=== PATIENT | female | born 1985 | race Two or more races ===

== ENCOUNTER 2017-09-11 11:35 | Observation (INO) | payer SELFPAY ==
[~2017-09-11] VITALS: Ht 149.9 cm; Wt 69.9 kg
[2017-09-11] MEDS ORDERED: PREN-96 PO (12:19)
[2017-09-11 12:39] LABS: Urine RBC None Seen /hpf (0 - 4)
[2017-09-11 12:48] LABS: Basophils # (auto) 0.1 uL; Basophils % (auto) 0.6 % (0.0-2.0); Eosinophils # (auto) 0.3 uL; Eosinophils % (auto) 2.7 % (0.0-7.0); Hematocrit 37.6 % (36.0-46.0); Hemoglobin 12.5 g/dL (12.2-16.2); Lymphocytes % (auto) 17.4 % (10.0-50.0); Mean Corpuscular Hemoglobin 30.8 pg (28.0-32.0); Mean Corpuscular Hgb Conc. 33.4 g/dL (32.0-36.0); Mean Corpuscular Volume 92.3 fL (80.0-100.0); Mean Platelet Volume 9.1 fL (6.9-10.8); Monocytes # (auto) 0.8 uL; Monocytes % (auto) 6.8 % (0.0-12.0); Neutrophils # (auto) 8.3 uL; Neutrophils % (auto) 72.5 % (37.0-80.0); Nucleated Red Blood Cells % 0.1 %; Platelet Count (auto) 213 10^3/uL (140-450); Red Cell Distribution Width 13.3 % (11.8-14.3); Urine Bilirubin Negative (Negative); Urine Blood Negative /uL (Negative); Urine Color Yellow (Yellow); Urine Glucose Normal (Normal); Urine Ketone Negative (Negative); Urine Mucus FEW (None Seen); Urine Nitrite Negative (Negative); Urine Squamous Epithelial Cell FEW /hpf (<5); Urine Urobilinogen Normal (Negative); Urine pH 6.5 (5.0-8.0); White Blood Cell 11.4 10^3/uL (4.4-10.8)
[2017-09-11 12:58] LABS: INR 0.88 (0.9-1.15); Partial Thromboplastin Time 24.5 sec (22.64-33.71); Prothrombin Time 9.6 sec (9.37-12.3)
[2017-09-11 13:03] LABS: Albumin 2.7 g/dL (3.4-5.0); BUN/Creatinine Ratio 15.2; Calcium 8.7 mg/dL (8.5-10.1); Potassium 3.8 mmol/L (3.5-5.1)
[2017-09-11 13:06] LABS: Bilirubin, Total 0.3 mg/dL (0.2-1.0); Total Protein 6.8 g/dL (6.4-8.2)
[2017-09-11] MEDS ORDERED: LACTATED RINGER'S 1,000 ML IV ONE (14:15)
[2017-09-11] MEDS ORDERED: TERBUTALINE SULFATE 1 MG/ML 1ML VIAL SC ONE (14:49)
[2017-09-11] MEDS: TERBUTALINE SULFATE 1 MG/ML 1ML VIAL SC SCH ×3 (14:55→15:55)
[2017-09-11] MEDS ORDERED: BETAMETHASONE ACET (6MG/ML) 5ML VIAL IM ONE (17:15)
[2017-09-11] MEDS ORDERED: NIFEdipine 10 MG CAP PO SCH ×2 (21:30→22:00)
[2017-09-18 17:11] LABS: African American Detect. Rate Note (.); Ashkenazi Jewish Detect. Rate Note (.); Comments: Note (.); INTERPRETATION Note (.); Method/Limitations: Note (.); Mutations Analyzed: Note (.); Other or Mixed Ethnicity Rate Note (.)
== END 2017-09-11 23:47 | disposition home or self-care (01) | DRG 778 ==
LOC: LDRP 11:35
PROVIDERS: ADMIT Specialist; ATTEND Specialist
DX: O60.03 Preterm labor without delivery, third trimester (principal); Z3A.35 35 weeks gestation of pregnancy
CPT/HCPCS: 36415; 59025; 76805; 76818; 80053; 80307; 81001; 81002; 81220; 83036; 85025; 85610; 85730; 86592; 86703; 86762; 86850; 86900; 86901; 87340; 96360; 96372; G0378; J0702; J3105; 96365; 96366; 96374

== ENCOUNTER 2017-09-12 17:05 | Observation (INO) | payer SELFPAY ==
[~2017-09-12 17:05] MED LIST: PREN-96 PO
[2017-09-12] MEDS ORDERED: BETAMETHASONE ACET (6MG/ML) 5ML VIAL IM ONE (17:30)
== END 2017-09-12 18:05 | disposition home or self-care (01) | DRG 782 ==
LOC: LDRP 17:05
PROVIDERS: ADMIT Specialist; ATTEND Specialist
DX: O40.3XX0 Polyhydramnios, third trimester, not applicable or unspecified (principal); Z3A.36 36 weeks gestation of pregnancy
CPT/HCPCS: 59025; 81002; 96372; G0378

== ENCOUNTER 2017-10-03 04:20 | Inpatient (IN) | payer MEDICAID ==
[~2017-10-03] VITALS: Ht 147.3 cm; Wt 69.9 kg
[2017-10-03] VITALS (16 sets, daily range): BP systolic 104–143; BP diastolic 60–92
[2017-10-03] MEDS: LACTATED RINGER'S 1,000 ML IV SCH ×2 (04:32→20:32)
[2017-10-03 05:20] LABS: Urine Bacteria NONE SEEN /hpf (None Seen); Urine Blood Negative /uL (Negative); Urine WBC <1 /hpf (0 - 5)
[2017-10-03 05:20] LABS: Basophils # (auto) 0 uL; Basophils % (auto) 0.6 % (0.0-2.0); Eosinophils # (auto) 0.2 uL; Eosinophils % (auto) 2.6 % (0.0-7.0); Hematocrit 36.3 % (36.0-46.0); Hemoglobin 12.5 g/dL (12.2-16.2); Lymphocytes # (auto) 1.7 uL; Lymphocytes % (auto) 22.4 % (10.0-50.0); Mean Corpuscular Hemoglobin 32.1 pg (28.0-32.0); Mean Corpuscular Hgb Conc. 34.4 g/dL (32.0-36.0); Mean Corpuscular Volume 93.2 fL (80.0-100.0); Monocytes # (auto) 0.5 uL; Monocytes % (auto) 6.1 % (0.0-12.0); Neutrophils # (auto) 5.3 uL; Neutrophils % (auto) 68.3 % (37.0-80.0); Nucleated Red Blood Cells % 0.1 %; Platelet Count (auto) 152 10^3/uL (140-450); Red Blood Cells 3.89 10^6/uL (4.0-5.20); Red Cell Distribution Width 13.5 % (11.8-14.3); White Blood Cell 7.7 10^3/uL (4.4-10.8)
[2017-10-03] MEDS ORDERED: NIF10C PO (05:26)
[2017-10-03 05:27] LABS: Albumin 2.5 g/dL (3.4-5.0); BUN/Creatinine Ratio 35.9; Calcium 8.3 mg/dL (8.5-10.1); INR 0.85 (0.9-1.15); Partial Thromboplastin Time 25.8 sec (22.64-33.71); Potassium 3.9 mmol/L (3.5-5.1); Prothrombin Time 9.2 sec (9.37-12.3)
[2017-10-03 05:28] LABS: Alcohol, Urine < 3.0 mg/dL (0-5); Amphetamine Screen, Urine NEGATIVE (NEGATIVE); Barbiturate Scree,Urine NEGATIVE (NEGATIVE); Benzodiazephine Screen, Urine NEGATIVE (NEGATIVE); Cannabinoid Screen, Urine NEGATIVE (NEGATIVE); Cocaine Screen, Urine NEGATIVE (NEGATIVE); Opiate Scree,Urine NEGATIVE (NEGATIVE); Phencyclidine Screen, Urine NEGATIVE (NEGATIVE)
[2017-10-03 05:36] LABS: Bilirubin, Total 0.3 mg/dL (0.2-1.0); Total Protein 6.4 g/dL (6.4-8.2)
[2017-10-03] MEDS ORDERED: SUCCINYLCHOLINE CHLORIDE 20 MG/ML 10ML VIAL IV ONE (06:59)
[2017-10-03] MEDS ORDERED: TETRACAINE 1% INJ 2 ML VIAL IJ ONE (06:59)
[2017-10-03] MEDS ORDERED: MORPHINE SULF(PF) 0.5MG/ML 10ML VIAL ONE (08:38)
[2017-10-03] MEDS ORDERED: OXYTOCIN 10 UNIT/ML 10ML VIAL ONE (08:38)
[2017-10-03] MEDS ORDERED: fentaNYL CITRATE 100 MCG/2 ML VL ONE (08:38)
[2017-10-03] MEDS ORDERED: ceFAZolin 1GM VL ONE (08:38)
[2017-10-03] MEDS ORDERED: MIDAZOLAM HCL 1MG/1ML-2 ML VIAL ONE (08:38)
[2017-10-03] MEDS ORDERED: SODIUM CHLORIDE LOCK 10 ML ONE (08:38)
[2017-10-03] MEDS ORDERED: LACT. RINGERS/OXYTOCIN 20UNITS 1,000 ML IV SCH (08:46)
[2017-10-03] MEDS ORDERED: ONDANSETRON HCL 4 MG/2 ML VIAL IV PRN (09:00)
[2017-10-03] MEDS ORDERED: diphenhdrAMINE HCL 50 MG/1 ML VL IV PRN (09:00)
[2017-10-03] MEDS ORDERED: METOCLOPRAMIDE HCL 5MG/ml INJ 2ml VIAL IV ONE (09:00)
[2017-10-03] MEDS ORDERED: MORPHINE SULFATE 4 MG/ML SYR/VIAL IV PRN (09:00)
[2017-10-03] MEDS ORDERED: HYDROmorphone HCL 2 MG/ML VL IV PRN ×2 (09:00→22:00)
[2017-10-03] MEDS ORDERED: NALOXONE HCL 0.4 MG/ML VIAL IV PRN (09:00)
[2017-10-03] MEDS ORDERED: KETOROLAC TROMETH 30 MG/ML 1ML VIAL IV PRN (09:00)
[2017-10-03] MEDS ORDERED: KETOROLAC TROMETH 30 MG/ML 1ML VIAL IV ONE (09:00)
[2017-10-03] MEDS: ceFAZolin 1GM/50ML 50 ML IV SCH (17:30)
[2017-10-03 20:13] LABS: Basophils # (auto) 0 uL; Basophils % (auto) 0.4 % (0.0-2.0); Eosinophils # (auto) 0.2 uL; Eosinophils % (auto) 1.6 % (0.0-7.0); Hematocrit 33.8 % (36.0-46.0); Hemoglobin 11.3 g/dL (12.2-16.2); Lymphocytes # (auto) 2.1 uL; Lymphocytes % (auto) 17.5 % (10.0-50.0); Mean Corpuscular Hemoglobin 31.4 pg (28.0-32.0); Mean Corpuscular Hgb Conc. 33.5 g/dL (32.0-36.0); Mean Corpuscular Volume 93.7 fL (80.0-100.0); Monocytes # (auto) 0.6 uL; Monocytes % (auto) 4.9 % (0.0-12.0); Neutrophils # (auto) 8.9 uL; Neutrophils % (auto) 75.6 % (37.0-80.0); Nucleated Red Blood Cells % 0.1 %; Platelet Count (auto) 153 10^3/uL (140-450); Red Blood Cells 3.61 10^6/uL (4.0-5.20); Red Cell Distribution Width 13.8 % (11.8-14.3); White Blood Cell 11.8 10^3/uL (4.4-10.8)
[2017-10-03] MEDS: KETOROLAC TROMETH 30 MG/ML 1ML VIAL IV PRN (22:26)
[2017-10-04] VITALS (7 sets, daily range): BP systolic 109–135; BP diastolic 64–78
[2017-10-04] MEDS: ceFAZolin 1GM/50ML 50 ML IV SCH ×2 (01:18→08:57)
[2017-10-04] MEDS: KETOROLAC TROMETH 30 MG/ML 1ML VIAL IV PRN (04:15)
[2017-10-04] MEDS: LACTATED RINGER'S 1,000 ML IV SCH (05:00)
[2017-10-04 06:02] LABS: Basophils # (auto) 0 uL; Basophils % (auto) 0.4 % (0.0-2.0); Eosinophils # (auto) 0.2 uL; Eosinophils % (auto) 2.3 % (0.0-7.0); Hematocrit 32.7 % (36.0-46.0); Hemoglobin 11.4 g/dL (12.2-16.2); Lymphocytes # (auto) 1.9 uL; Lymphocytes % (auto) 19.8 % (10.0-50.0); Mean Corpuscular Hemoglobin 32.4 pg (28.0-32.0); Mean Corpuscular Hgb Conc. 34.9 g/dL (32.0-36.0); Mean Corpuscular Volume 92.7 fL (80.0-100.0); Monocytes # (auto) 0.5 uL; Monocytes % (auto) 5.2 % (0.0-12.0); Neutrophils % (auto) 72.3 % (37.0-80.0); Nucleated Red Blood Cells % 0.1 %; Platelet Count (auto) 153 10^3/uL (140-450); Red Blood Cells 3.53 10^6/uL (4.0-5.20); Red Cell Distribution Width 13.7 % (11.8-14.3); White Blood Cell 9.7 10^3/uL (4.4-10.8)
[2017-10-04] MEDS ORDERED: HYDROcodone-ACET 5/325MG TAB PO PRN (07:00)
[2017-10-04] MEDS ORDERED: BISACODYL 10 MG RECT SUPP PR PRN (07:00)
[2017-10-04] MEDS: SIMETHICONE 80 MG CHEWABLE TABLET PO SCH ×4 (07:15→22:04)
[2017-10-04] MEDS: HYDROcodone-ACET 5/325MG TAB PO PRN ×2 (08:58→22:05)
[2017-10-04] MEDS: DOCUSATE SOD 100 MG CAP PO SCH ×2 (10:00→22:04)
[2017-10-04] MEDS: DOCUSATE CALCIUM 240 MG CAP PO SCH (10:00)
[2017-10-04] MEDS: IBUPROFEN 800 MG TAB PO PRN ×2 (12:48→20:39)
[2017-10-05] VITALS: BP 146/84
[2017-10-05] MEDS ORDERED: INFLUENZA QUAD 2017-2018 0.5 ML SYRG IM ONE
[2017-10-05] MEDS ORDERED: TETANUS-DIPTH-ACEL PERTUSSIS 0.5ML SYRG IM ONE
[2017-10-05] MEDS: HYDROcodone-ACET 5/325MG TAB PO PRN ×2 (02:07→08:56)
[2017-10-05 04:00] VITALS: BP 114/67
[2017-10-05] MEDS: SIMETHICONE 80 MG CHEWABLE TABLET PO SCH ×2 (06:00→12:00)
[2017-10-05 08:00] VITALS: BP 125/78
[2017-10-05] MEDS: DOCUSATE CALCIUM 240 MG CAP PO SCH (09:58)
[2017-10-05] MEDS: DOCUSATE SOD 100 MG CAP PO SCH (09:58)
[2017-10-05 12:23] VITALS: BP 124/68
[2017-10-05] MEDS: IBUPROFEN 800 MG TAB PO PRN (13:00)
[2017-10-05] MEDS ORDERED: MEASLES, MUMPS & RUBELLA VAC(MMRII) 0.5ML SC ONE (14:54)
[2017-10-05 15:55] VITALS: BP 127/92
[2017-10-06] MEDS ORDERED: MEASLES, MUMPS & RUBELLA VAC(MMRII) 0.5ML SC ONE (08:00)
== END 2017-10-05 16:00 | disposition home or self-care (01) | DRG 766 ==
LOC: LDRP 04:20
PROVIDERS: ADMIT Obstetrics & Gynecology; ATTEND Obstetrics & Gynecology
PROC: 0UL70CZ Occlusion of Bilateral Fallopian Tubes with Extraluminal Device, Open Approach (ICD-10-PCS; 2017-10-03)
PROC: 10D00Z1 Extraction of Products of Conception, Low, Open Approach (ICD-10-PCS; principal; 2017-10-03 07:45)
DX: O34.219 Maternal care for unspecified type scar from previous cesarean delivery (principal); O69.81X0 Labor and delivery complicated by cord around neck, without compression, not applicable or unspecified; Z37.0 Single live birth; Z3A.39 39 weeks gestation of pregnancy; Z30.2 Encounter for sterilization
CPT/HCPCS: 36415; 59025; 80053; 80307; 81001; 81002; 85025; 85610; 85730; 86850; 86900; 86901; 90471; 90715; 94762; 96361; 96366; 96372; 96374; J0330; J0690; J1885; J2250; J2590

== ENCOUNTER 2021-03-01 14:47 | Emergency (ER) | payer MEDICAID ==
[~2021-03-01] VITALS: Ht 154.9 cm; Wt 72.6 kg
[2021-03-01] MEDS ORDERED: cefTRIAXone 1GM/50ML D5W 50 ML IV ONE (15:15)
[2021-03-01 16:00] VITALS: BP 121/61
[2021-03-01] MEDS ORDERED: LIDOCAINE 1% HCL (LOCAL ANESTH.) INJ 20ML MDV ID ONE (17:00)
[2021-03-01] MEDS ORDERED: LIDOCAINE 1% HCL (LOCAL ANESTH.) INJ 20ML MDV ONE (17:00)
== END 2021-03-01 18:31 | disposition home or self-care (01) ==
LOC: ER 14:47 → EDBD 14:47 → ER 18:31
DX: S02.2XXA Fracture of nasal bones, initial encounter for closed fracture (principal); S01.511A Laceration without foreign body of lip, initial encounter; R10.9 Unspecified abdominal pain; Y04.2XXA Assault by strike against or bumped into by another person, initial encounter; Y93.89 Activity, other specified; Y92.89 Other specified places as the place of occurrence of the external cause; Y99.8 Other external cause status
CPT/HCPCS: 12013; 70450; 70486; 71046; 72125; 74176; 96365; 99285; J0696; J2001